=== PATIENT | female | born 2000 | race African-American/Black ===

== ENCOUNTER 2020-04-23 16:54 | Emergency (ER) | payer OTHER ==
[~2020-04-23] VITALS: Ht 154.9 cm; Wt 68.2 kg
[2020-04-23 16:58] VITALS: BP 128/94; TEMP 98.5
[2020-04-23 17:41] LABS: COLLECTION METHOD CLEAN CATCH
[2020-04-23 17:47] LABS: MUCOUS Present /lpf; PH 5 (5-8); SQUAMOUS EPITHELIAL 0-2 /hpf; URINE APPEARANCE Clear; URINE BACTERIA None Seen /hpf; URINE BILIRUBIN Negative (NEGATIVE); URINE BLOOD Negative (NEGATIVE); URINE COLOR Yellow; URINE GLUCOSE Negative (NEGATIVE); URINE KETONE 1+ (NEGATIVE); URINE LEUKOCYTE ESTERASE Negative (NEGATIVE); URINE NITRATE Negative (NEGATIVE); URINE PROTEIN(semi-quant) Negative (NEGATIVE); URINE RBC None Seen /hpf; URINE UROBILINOGEN Negative (NEGATIVE)
[2020-04-23] MEDS ORDERED: ALDACTONE 25MG25 M1 PO (19:08)
[2020-04-23 19:17] VITALS: PULSE 80
== END 2020-04-23 19:17 | disposition home or self-care (01) ==
LOC: COL.ER 16:54
PROVIDERS: Emergency Medicine
DX: R10.31 Right lower quadrant pain (principal); R19.7 Diarrhea, unspecified
CPT/HCPCS: Q9967